=== PATIENT | female | born 1950 | race Two or more races ===

== ENCOUNTER 2023-08-31 06:50 | Day surgery (SDC) | payer OTHER ==
[~2023-08-31] VITALS: Ht 165.1 cm; Wt 68.0 kg
[~2023-08-31 06:50] MED LIST: ALENDRONATE SOD70 MG PO; AVAPRO300 MG PO; CHILDREN'S ASPI81 MG PO; CLONAZEPAM2 M1 PO; FLUTICASONE-SA1 EAC5; GABAPENTIN300 M2 PO; LIPITOR40 M1 PO; PANTOPRAZOLE SO40 MG PO; PROZAC20 MG PO; SINGULAIR10 MG PO; SPIRIVA RESPIMAT4 GM IH; ZYRTEC10 M3 PO
[2023-08-31] MEDS ORDERED: CEFAZOLIN SODIUM 1,000 MG VIAL ONE (10:02)
[2023-09-03] MEDS ORDERED: CEFAZOLIN SODIUM 1,000 MG VIAL IV ONE (11:45)
== END 2023-08-31 15:30 | disposition home or self-care (01) ==
LOC: CIR.AMB 06:50
PROVIDERS: ATTEND Surgery
DX: C50.811 Malignant neoplasm of overlapping sites of right female breast (principal); C77.3 Secondary and unspecified malignant neoplasm of axilla and upper limb lymph nodes; R59.0 Localized enlarged lymph nodes
CPT/HCPCS: 19301; 38525; 19281; A9541; L8699

== ENCOUNTER 2023-09-25 14:59 | Outpatient (CLI) | payer OTHER | END 2023-09-25 15:03 | disposition home or self-care (01) | LOC: RAD 14:59 | PROVIDERS: ATTEND Surgery | DX: C50.811 Malignant neoplasm of overlapping sites of right female breast (principal) ==

== ENCOUNTER → 2024-03-14 08:08 | Outpatient (CLI) | payer OTHER | END | disposition home or self-care (01) | LOC: TOM 08:08 | DX: M25.552 Pain in left hip (principal); M25.551 Pain in right hip ==

== ENCOUNTER 2024-05-04 11:49 | Emergency (ER) | payer OTHER ==
[~2024-05-04] VITALS: Ht 167.6 cm; Wt 65.8 kg
[2024-05-04] MEDS ORDERED: DIPHENHYDRAMINE HCL 50 MG/ML VIAL 1ML IV ONE (13:45)
[2024-05-04] MEDS ORDERED: ONDANSETRON HCL 2 MG/ML VIAL IV ONE (13:45)
[2024-05-04] MEDS ORDERED: MORPHINE SULFATE 2 MG/ML SYRINGE IV ONE (13:45)
[2024-05-04] MEDS ORDERED: BENADRYL ALLERG25 MG PO (15:47)
[2024-05-04] MEDS ORDERED: ALL DAY ALLERGY10 M3 PO (15:47)
== END 2024-05-04 16:13 | disposition home or self-care (01) ==
LOC: ER 11:51
DX: H01.006 Unspecified blepharitis left eye, unspecified eyelid (principal); Z85.3 Personal history of malignant neoplasm of breast
CPT/HCPCS: 96365; 99282; J1200; J2270; J2405

== ENCOUNTER 2024-07-11 08:56 | Outpatient (CLI) | payer OTHER ==
[~2024-07-11 08:56] MED LIST changes: +ALL DAY ALLERGY10 M3 PO; +BENADRYL ALLERG25 MG PO
== END 2024-07-11 09:03 | disposition home or self-care (01) ==
LOC: SONOGRAMA 08:56
DX: R10.11 Right upper quadrant pain (principal); R94.5 Abnormal results of liver function studies; R11.10 Vomiting, unspecified

== ENCOUNTER 2024-07-11 09:35 | Outpatient (CLI) | payer OTHER ==
[2024-07-11 10:07] LABS: HEMATOCRIT 35.6 % (36.0-45.00); MEAN CELL VOLUME 91.2 fL (80.00-100.00); MEAN CORPUSCULAR HEMOGLOBIN 30.8 pg (27.00-32.0); MEAN CORPUSCULAR HGB CONC 33.8 g/dl (32.0-36.0); RED CELL DISTRIBUTION WIDTH 14.2 % (11.5-14.5)
[2024-07-11 10:10] LABS: PLATELET COUNT 120 K/uL (150-450)
[2024-07-11 10:38] LABS: INR 0.98; PARTIAL THROMBOPLASTIN TIME 24.6 SECONDS (22.0-34.0); PROTHROMBIN TIME 10.7 SECONDS (9.0-11.5)
[2024-07-11 11:18] LABS: ALBUMIN 3.5 gm/dL (3.4-5.0); BILIRUBIN TOTAL 0.45 mg/dL (0.3-1.2); CALCIUM 9.7 mg/dL (8.5-10.1); GFR 54.2; GLOBULINA 2.6 G/DL (2.4-3.5); POTASSIUM 4.49 mEq/L (3.5-5.1); TOTAL PROTEIN 6.1 gm/dL (6.4-8.2)
== END 2024-07-11 09:36 | disposition home or self-care (01) ==
LOC: LAB 09:35
DX: R94.5 Abnormal results of liver function studies (principal); Z11.4 Encounter for screening for human immunodeficiency virus [HIV]; K81.9 Cholecystitis, unspecified; K81.0 Acute cholecystitis; Z13.220 Encounter for screening for lipoid disorders; Z13.228 Encounter for screening for other metabolic disorders

== ENCOUNTER 2024-07-26 09:18 | Outpatient (CLI) | payer OTHER | END 2024-07-26 09:24 | disposition home or self-care (01) | LOC: RAD 09:18 | DX: M25.551 Pain in right hip (principal); M25.552 Pain in left hip; J20.9 Acute bronchitis, unspecified; R06.00 Dyspnea, unspecified; R94.2 Abnormal results of pulmonary function studies; R05.9 Cough, unspecified ==